=== PATIENT | male | born 1990 | race Caucasian/White ===

== ENCOUNTER 2017-11-14 16:15 | Emergency (ER) | payer MEDICAID ==
[~2017-11-14] VITALS: Ht 170.2 cm; Wt 77.0 kg
[~2017-11-14 16:15] MED LIST: NO HOME MEDS
[2017-11-14] MEDS ORDERED: pantoprazole 40mg Tablet.DR PO ONE (20:15)
[2017-11-14] MEDS ORDERED: ondansetron 4mg rapidly disintigrating tab PO ONE (20:15)
[2017-11-14 22:08] VITALS: BP 126/71
== END 2017-11-14 22:10 | disposition home or self-care (01) ==
LOC: ER 16:16
DX: R10.13 Epigastric pain (principal); R11.0 Nausea; Z98.890 Other specified postprocedural states; Z88.1 Allergy status to other antibiotic agents
CPT/HCPCS: 99283

== ENCOUNTER 2018-11-08 02:59 | Emergency (ER) | payer MEDICAID ==
[~2018-11-08] VITALS: Ht 170.2 cm; Wt 72.5 kg
[2018-11-08] MEDS ORDERED: TETanus/Pertussis (Acell)/Diphther VAC/PF (Tdap-Adult) 0.5ml syringe IM ONE (03:15)
[2018-11-08] MEDS ORDERED: acetaminophen 325mg tablet PO ONE (03:15)
[2018-11-08] MEDS ORDERED: normal saline 1000ML IV soln IVB ONE ×2 (03:15→06:45)
[2018-11-08 03:44] LABS: BASOPHILS % (AUTO) 0.3 % (0-1); EOSINOPHILS # (AUTO) 0.3 X10'3 (0-0.9); LYMPHOCYTES # (AUTO) 2.9 X10'3 (1.1-4.8); LYMPHOCYTES % (AUTO) 19.6 % (21-51); MEAN CORPUSCULAR HEMOGLOBIN 32.8 PG (27.0-31.0); MEAN CORPUSCULAR HGB CONC 34.1 % (33.0-36.5); MEAN CORPUSCULAR VOLUME 96.2 FL (78-98); MEAN PLATELET VOLUME 7.9 FL (7.4-10.4); MONOCYTES % (AUTO) 6.7 % (2-12); NEUTROPHILS # (AUTO) 10.6 X10'3 (1.8-7.7); NEUTROPHILS % (AUTO) 71.4 % (42-75); PLATELET COUNT 378 X10'3 (140-440); RED BLOOD COUNT 4.57 X10'6 (4.70-6.10); RED CELL DISTRIBUTION WIDTH 14.2 % (11.5-14.5); WHITE BLOOD COUNT 14.9 X10'3 (4.5-11.0)
[2018-11-08 03:49] LABS: ALANINE AMINOTRANSFERASE 41 U/L (12-78); ALBUMIN 4.6 G/DL (3.4-5.0); ALBUMIN/GLOBULIN RATIO 1.2 (1.1-1.5); ALKALINE PHOSPHATASE 83 IU/L (46-116); ANION GAP 18 (8-16); ASPARTATE AMINO TRANSFERASE 40 U/L (10-37); BILIRUBIN,TOTAL 0.6 MG/DL (0.1-1.0); BLOOD UREA NITROGEN 16 MG/DL (7-18); BUN/CREATININE RATIO 13.9 (5.4-32.0); CALCIUM 8.6 MG/DL (8.5-10.1); CHLORIDE 100 MMOL/L (99-107); CREATININE 1.15 MG/DL (0.60-1.10); ETHANOL 0.237 GM/DL (0.0-0.010); GLUCOSE 100 MG/DL (70-104); POTASSIUM 3.7 MMOL/L (3.5-5.1); SODIUM 141 MMOL/L (135-145); TOTAL CARBON DIOXIDE 23.5 MMOL/L (24-32); TOTAL PROTEIN 8.3 G/DL (6.4-8.2); eGFR 75 ML/MIN
[2018-11-08] MEDS ORDERED: LIDOcaine 1.5% w/epinephrine 1:200,000 5ml ampul IJ ONE (04:00)
[2018-11-08] MEDS ORDERED: LIDOcaine 1% w/epiNEPHrine 1:200,000 30ml vial IJ ONE (04:05)
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
--- NOTE | 2018-11-08 04:56 | NUR ---
Pt refused tetanus booster. Risks and benefits discussed. Pt continues to refuse
[2018-11-08] MEDS ORDERED: HYDR-3965 PO (06:40)
[2018-11-08] MEDS ORDERED: ONDA4TAB6 PO (06:40)
[2018-11-08] MEDS ORDERED: METH500T PO (06:40)
[2018-11-08] MEDS ORDERED: CEPH-572 PO (06:42)
[2018-11-08 08:01] VITALS: BP 120/58
--- NOTE | 2018-11-08 08:31 | NUR ---
patient asleep at this time.We will continue to monitor.
== END 2018-11-08 09:26 | disposition home or self-care (01) ==
LOC: ER 02:59
DX: S06.0X0A Concussion without loss of consciousness, initial encounter (principal); S61.213A Laceration without foreign body of left middle finger without damage to nail, initial encounter; S01.81XA Laceration without foreign body of other part of head, initial encounter; S60.512A Abrasion of left hand, initial encounter; F10.129 Alcohol abuse with intoxication, unspecified; H11.32 Conjunctival hemorrhage, left eye; F12.90 Cannabis use, unspecified, uncomplicated; Z88.1 Allergy status to other antibiotic agents; W10.8XXA Fall (on) (from) other stairs and steps, initial encounter; Y93.89 Activity, other specified; Y92.89 Other specified places as the place of occurrence of the external cause; Y99.9 Unspecified external cause status; Y90.9 Presence of alcohol in blood, level not specified
CPT/HCPCS: 12001; 12011; 36415; 70450; 70486; 72125; 80053; 80320; 85025; 90715; 99284; J3490; J7030

== ENCOUNTER 2019-12-10 09:59 | Emergency (ER) | payer MEDICAID ==
[2019-12-10 10:49] LABS: CLARITY,URINE CLEAR (Clear); COLOR,URINE STRAW (Yellow); GLUCOSE, URINE NEGATIVE (Neg); KETONES,URINE NEGATIVE (Neg); LEUKOCYTE ESTERASE ,URINE NEGATIVE (Neg); NITRITES, URINE NEGATIVE (Neg); OCCULT BLOOD,URINE SMALL (Neg); PROTEIN,URINE NEGATIVE (Neg); UROBILINOGEN,URINE 0.2 E.U/dL (0.2-1.0)
[2019-12-10 10:51] LABS: BASOPHILS # (AUTO) 0.1 X10'3 (0-0.2); BASOPHILS % (AUTO) 0.7 % (0-1); EOSINOPHILS # (AUTO) 0.1 X10'3 (0-0.9); EOSINOPHILS % (AUTO) 1.1 % (0-6); HEMATOCRIT 39.2 % (42.0-52.0); HEMOGLOBIN 13.7 g/dl (14.0-17.9); LYMPHOCYTES # (AUTO) 2.2 X10'3 (1.1-4.8); LYMPHOCYTES % (AUTO) 29.1 % (21-51); MEAN CORPUSCULAR HEMOGLOBIN 34.1 PG (27.0-31.0); MEAN CORPUSCULAR VOLUME 97.4 FL (78-98); MEAN PLATELET VOLUME 7.9 FL (7.4-10.4); MONOCYTES # (AUTO) 0.8 X10'3 (0-0.9); MONOCYTES % (AUTO) 10.6 % (2-12); NEUTROPHILS # (AUTO) 4.3 X10'3 (1.8-7.7); NEUTROPHILS % (AUTO) 58.5 % (42-75); PLATELET COUNT 307 X10'3 (140-440); RED BLOOD COUNT 4.02 X10'6 (4.70-6.10); RED CELL DISTRIBUTION WIDTH 13.9 % (11.5-14.5); WHITE BLOOD COUNT 7.4 X10'3 (4.5-11.0)
[2019-12-10 10:53] LABS: UA COLLECTION TYPE NON-SPECIFIED
[2019-12-10 10:54] LABS: BACTERIA,URINE NONE SEEN /HPF (Neg); RBC,URINE 0-2 /HPF (0-2); WBC,URINE NONE SEEN /HPF (0-4)
[2019-12-10 10:55] LABS: SQUAMOUS EPITHELIAL CELL,UR NONE SEEN /LPF (FEW)
[2019-12-10 11:06] LABS: BILIRUBIN,TOTAL 0.4 MG/DL (0.1-1.0); GLUCOSE 67 MG/DL (70-104); POTASSIUM 4.5 MMOL/L (3.5-5.1); SODIUM 145 MMOL/L (135-145)
[2019-12-10 11:08] LABS: ALANINE AMINOTRANSFERASE 23 U/L (12-78); ALBUMIN 4.2 G/DL (3.4-5.0); ALBUMIN/GLOBULIN RATIO 1.4 (1.1-1.5); ALKALINE PHOSPHATASE 66 IU/L (46-116); AMYLASE 53 U/L (25-115); ANION GAP 10 (8-16); ASPARTATE AMINO TRANSFERASE 19 U/L (10-37); BLOOD UREA NITROGEN 13 MG/DL (7-18); BUN/CREATININE RATIO 12.1 (5.4-32.0); CALCIUM 8.9 MG/DL (8.5-10.1); CHLORIDE 106 MMOL/L (99-107); CREATININE 1.07 MG/DL (0.60-1.10); LIPASE 102 U/L (73-393); TOTAL CARBON DIOXIDE 28.8 MMOL/L (24-32); TOTAL PROTEIN 7.3 G/DL (6.4-8.2); eGFR 81 ML/MIN
[2019-12-10 11:29] VITALS: BP 133/82
== END 2019-12-10 11:32 | disposition home or self-care (01) ==
LOC: ER 09:59
DX: S29.012A Strain of muscle and tendon of back wall of thorax, initial encounter (principal); F12.90 Cannabis use, unspecified, uncomplicated; Z88.1 Allergy status to other antibiotic agents; Z98.890 Other specified postprocedural states; X58.XXXA Exposure to other specified factors, initial encounter; Y93.89 Activity, other specified; Y92.89 Other specified places as the place of occurrence of the external cause; Y99.8 Other external cause status
CPT/HCPCS: 36415; 80053; 81001; 82150; 83690; 85025; 99283

== ENCOUNTER 2020-05-17 16:55 | Emergency (ER) | payer MEDICAID ==
[~2020-05-17] VITALS: Ht 170.2 cm; Wt 72.0 kg
--- NOTE | 2020-05-17 20:05 | NUR ---
X RAY AT BEDSIDE
[2020-05-17] MEDS ORDERED: IBUP-1984 PO (20:25)
[2020-05-17 20:53] VITALS: BP 148/82
== END 2020-05-17 20:40 | disposition home or self-care (01) ==
LOC: ER 16:55
DX: S63.91XA Sprain of unspecified part of right wrist and hand, initial encounter (principal); F12.90 Cannabis use, unspecified, uncomplicated; Z98.890 Other specified postprocedural states; Z88.0 Allergy status to penicillin; Z79.899 Other long term (current) drug therapy; X50.9XXA Other and unspecified overexertion or strenuous movements or postures, initial encounter; Y93.39 Activity, other involving climbing, rappelling and jumping off; Y92.89 Other specified places as the place of occurrence of the external cause; Y99.8 Other external cause status
CPT/HCPCS: 73130; 99283

== ENCOUNTER 2021-07-01 09:20 | Emergency (ER) | payer MEDICAID ==
[~2021-07-01] VITALS: Ht 170.2 cm; Wt 75.0 kg
[2021-07-01 09:21] VITALS: BP 113/86
[2021-07-01] MEDS ORDERED: acetaminophen 325mg tablet PO ONE (09:30)
== END 2021-07-01 10:28 | disposition home or self-care (01) ==
LOC: ER 09:20
DX: S43.102A Unspecified dislocation of left acromioclavicular joint, initial encounter (principal); M25.511 Pain in right shoulder; F12.90 Cannabis use, unspecified, uncomplicated; Z72.89 Other problems related to lifestyle; Z98.890 Other specified postprocedural states; Z88.1 Allergy status to other antibiotic agents; W01.0XXA Fall on same level from slipping, tripping and stumbling without subsequent striking against object, initial encounter; Y93.89 Activity, other specified; Y92.89 Other specified places as the place of occurrence of the external cause; Y99.8 Other external cause status
CPT/HCPCS: 29105; 73030; 99283

== ENCOUNTER 2024-03-18 18:59 | Emergency (ER) | payer MEDICAID ==
[~2024-03-18] VITALS: Ht 170.2 cm; Wt 77.8 kg
[2024-03-18 20:45] VITALS: BP 126/69; PULSE 94; TEMP 98.5; O2SAT 97
[2024-03-18] MEDS ORDERED: PRED20TA PO (22:09)
[2024-03-18] MEDS: dexamethasone sod phosphate 10mg/ml inj IM STA (22:31)
[2024-03-18 22:32] VITALS: RESP 18
[2024-03-18] MEDS: ketorolac trometh inj. 60 MG/2 ML VIAL IM ONE (22:32)
== END 2024-03-18 22:47 | disposition home or self-care (01) ==
LOC: ER 19:00
DX: M10.9 Gout, unspecified (principal); F12.90 Cannabis use, unspecified, uncomplicated; Z98.890 Other specified postprocedural states; Z72.89 Other problems related to lifestyle; Z88.8 Allergy status to other drugs, medicaments and biological substances
CPT/HCPCS: 96372; 99284; J1100; J1885

== ENCOUNTER 2025-03-18 09:21 | Outpatient (CLI) | payer MEDICAID ==
--- NOTE | 2025-03-18 11:21 | RADIOLOGY REPORT ---
[facility] INDICATION: LEFT SIDED NECK PAIN COMPARISON: None TECHNIQUE: 3 views of the cervical spine were obtained. FINDINGS: The cervical vertebral alignment is normal. The predental space is normal. The intervertebral disc spaces are well-maintained. No significant facet arthropathy is noted. No acute fracture, vertebral compression deformity or aggressive osseous lesions. The imaged lung apices are unremarkable. IMPRESSION: No acute fracture.
--- NOTE | 2025-03-18 12:22 | VASCULAR REPORT ---
CAROTID ARTERIAL DOPPLER CLINICAL HISTORY: Left neck numbness. TECHNIQUE: Doppler study of bilateral carotid/vertebral arteries were performed. Comparison: None FINDINGS: The bilateral common carotid, external and internal carotid arteries appear patent without hemodynami mary significant stenosis. There is no significant flow limiting plaque formation identified.The sp ectral wave forms and peak systolic velocities are within normal limits. Antegrade flow is present within the vertebral arteries. Right ICA/CCA PSV ratio = 0.83. Left ICA/CCA PSV ratio = 0.97 . IMPRESSION: 1. No hemodynamically significant stenosis within the carotid arteries. HS:Y
--- NOTE | 2025-03-18 15:55 | RADIOLOGY REPORT ---
Exam: US US NON VASCULAR Clinical History: BACK MASS Comparison: None Technique: Targeted sonographic evaluation of the soft tissues of the left upper back was obtained utilizing gr ayscale and color Doppler imaging. Findings/Impression: Isoechoic encapsulated structure in the left upper back subcutaneous soft-tissue measures 2.7 x 0.8 c m likely representing a benign lipoma.
== END 2025-03-18 23:59 | disposition home or self-care (01) ==
LOC: VAS 09:21
PROVIDERS: ATTEND Physician Assistant
DX: M54.2 Cervicalgia (principal); R22.2 Localized swelling, mass and lump, trunk
CPT/HCPCS: 72040; 76882; 93880